=== PATIENT | male | born 1980 | race Caucasian/White ===

== ENCOUNTER 2022-02-18 18:02 | Emergency (ER) | payer OTHER ==
[2022-02-18 21:41] LABS: BASOPHIL 0.8 % (0-2); EOSINOPHIL 1.6 % (0-5); HCT 29.5 % (42.0-52.0); HGB 10.1 g/dl (13.2-18.0); LYMPHOCYTE 26.7 % (15-48); MCH 33.2 pg (25.0-31.0); MCHC 34.2 g/dL (32.0-36.0); MONOCYTE 11.8 % (0-12); MPV 11.2 fL (6.0-9.5); NEUTROPHIL 58.5 % (41-80); NRBC 0; PLT 107 K/uL (150-400); RBC 3.04 M/uL (4.70-6.00); RDW 16.5 % (11.5-14.0); WBC 8.5 K/uL (4.0-10.5)
[2022-02-18 21:45] LABS: INR 1.5 (0.9-1.2); PROTHROMBIN TIME 17.6 SECONDS (11.9-13.9)
[2022-02-18 21:46] LABS: PTT 36.7 SECONDS (24.9-34.6)
[2022-02-18 21:54] LABS: ALBUMIN 2.6 g/dL (3.4-5.0); BUN/CREAT RATIO (CALC) 29.6 RATIO; CREATININE 0.81 mg/dL (0.67-1.17); GLOBULIN (CALCULATION) 3.5 g/dL; POTASSIUM 4.6 mmol/L (3.5-5.1); TOTAL PROTEIN 6.1 g/dL (6.4-8.2)
[2022-02-18 23:53] LABS: HCT 24.7 % (42.0-52.0); HGB 8.7 g/dL (13.2-18.0)
[2022-02-19 01:47] LABS: CORONAVIRUS 2019 SARS-COV-2 NEGATIVE (NEGATIVE); INFLUENZA A NAA NEGATIVE (NEGATIVE)
[2022-02-20 09:08] LABS: HIV AB/P24 AG SCREEN Non Reactive (Non Reactive)
== END 2022-02-19 05:55 | disposition other institution (70) ==
LOC: FER 18:02
PROVIDERS: Internal Medicine
DX: K81.0 Acute cholecystitis (principal); K74.60 Unspecified cirrhosis of liver; K92.0 Hematemesis; D62 Acute posthemorrhagic anemia; F17.290 Nicotine dependence, other tobacco product, uncomplicated; Z20.822 Contact with and (suspected) exposure to COVID-19; Z28.310 Unvaccinated for COVID-19
CPT/HCPCS: 36415; 36430; 80053; 82140; 83605; 84145; 85014; 85018; 85025; 85610; 85730; 86850; 86900; 86901; 86922; 87389; C9113; J1170; J2354; J2405; J2543; J7030; J7050; P9016; U0002